=== PATIENT | female | born 1995 | race Hispanic/Latino ===

== ENCOUNTER → 2025-04-21 09:13 | Outpatient (REF) | payer OTHER, SELFPAY ==
[2025-04-21 19:33] LABS: Rubella Positive
[2025-04-23 17:40] LABS: Quantiferon Mitogen minus NIL 9.95 IU/mL; Quantiferon NIL 0.05 IU/mL; Quantiferon Plus TB1 minus NIL 0.02 IU/mL (<=0.34); Quantiferon Plus TB2 minus NIL 0.01 IU/mL (<=0.34); Quantiferon TB Gold Plus Negative (Negative)
== END ==
LOC: OHS 09:13
PROVIDERS: ATTENDING PHYSICIAN Nurse Practitioner Family
DX: Z23 Encounter for immunization (principal)
CPT/HCPCS: 36415; 86480; 86735; 86762; 86765; 86787